=== PATIENT | female | born 1965 | race Caucasian/White ===

== ENCOUNTER 2017-10-08 13:11 | Emergency (ER) | END 2017-10-08 15:45 | disposition home or self-care (01) ==

== ENCOUNTER 2018-01-09 21:47 | Inpatient (IN) | END 2018-01-11 16:36 | disposition home or self-care (01) | DRG 640 ==

== ENCOUNTER 2018-03-13 10:06 | Inpatient (IN) | END 2018-03-14 14:40 | disposition home or self-care (01) | DRG 189 ==